=== PATIENT | female | born 1995 ===

== ENCOUNTER 2017-11-26 15:42 | Emergency (ER) | payer SELFPAY ==
[2017-11-26 15:59] VITALS: BP 118/79
--- NOTE | 2017-11-26 16:21 | ER Document Report ---
HPI - HPI Patient complains to provider of: right hand pain Onset: Yesterday Pain Level: 3 Context: 22 yo right handed female stumbled and fell injuring right lateral dorsal hand. Associated Symptoms: None Exacerbated by: Movement Relieved by: Denies - ROS ROS below otherwise negative: Yes Systems Reviewed and Negative: Yes All other systems reviewed and negative Past Medical History - General Information source: Patient - Social History Smoking Status: Unknown if Ever Smoked Lives with: Family Family History: Reviewed & Not Pertinent - Medical History Medical History: Negative Surgical Hx: Negative Vertical Provider Document - CONSTITUTIONAL Agree With Documented VS: Yes Exam Limitations: No Limitations - INFECTION CONTROL TRAVEL OUTSIDE OF THE [place] IN LAST 30 DAYS: No - MUSCULOSKELETAL/EXTREMETIES Musculoskeletal/Extremeties: FROM, Tender - mid right 5th MC, Edema Notes: no rotational deviation - NEURO Level of Consciousness: Awake Motor/Sensory: No Motor Deficit, No Sensory Deficit Course - Re-evaluation Re-evalutation: 11/26/17 fx mid right 5th MC - Vital Signs Vital signs: Temp Pulse Resp BP Pulse Ox 98.4 F 61 16 118/79 100 11/26/17 15:58 11/26/17 15:58 11/26/17 15:58 11/26/17 15:58 11/26/17 15:58 Procedures - Immobilization Right Hand Time completed: 16:40 Pre-Proc Neuro Vasc Exam: Normal Immobilizer type: Ulnar, Sling Performed by: PCT Post-Proc Neuro Vasc Exam: Normal Alignment checked and good: Yes Discharge - Discharge Clinical Impression: Fifth metacarpal fracture right Condition: Good Disposition: HOME, SELF-CARE Instructions: Fractured Fifth Metacarpal ([facility]), Acetaminophen, Ibuprofen ( General) ([facility]), Sling to be Used ([facility]), Splint Precautions ([facility]), Temporary Splint ([facility]) Additional Instructions: Call orthopedics for follow-up appointment Keep the splint on Sling to elevate Tylenol up to 4000 mg a day for pain Motrin 600 mg 3 times a day for pain Return to the emergency room any concerns Prescriptions: Ibuprofen [Motrin 600 mg Tablet] 600 mg PO Q8HP PRN #30 tablet PRN Reason: Referrals: GUANAKITO ZAMORA DO [ACTIVE STAFF] - Follow up tomorrow
--- NOTE | 2017-11-26 16:25 | RADIOLOGY REPORT (SQ) ---
EXAM DESCRIPTION: HAND RIGHT 3 VIEWS COMPLETED DATE/TIME: 11/26/2017 4:16 pm REASON FOR STUDY: injury COMPARISON: None. EXAM PARAMETERS: NUMBER OF VIEWS: Three views. TECHNIQUE: AP, lateral and oblique radiographic images acquired of the right hand. LIMITATIONS: None. FINDINGS: MINERALIZATION: Normal. BONES: There is a transverse fracture through the 5th mid metacarpal. Remainder of the skeletal stru ctures appear intact. JOINTS: No effusions. SOFT TISSUES: No soft tissue swelling. No foreign body. OTHER: No other significant finding. IMPRESSION: Transverse fracture through the mid aspect of the 5th metacarpal. TECHNICAL DOCUMENTATION: JOB ID: [id number] [employer]- All Rights Reserved Reading location - IP/workstation name: [email or web address]
--- NOTE | 2017-11-26 16:26 | RADIOLOGY REPORT (SQ) ---
EXAM DESCRIPTION: WRIST RIGHT 3 VIEWS COMPLETED DATE/TIME: 11/26/2017 4:19 pm REASON FOR STUDY: injury COMPARISON: None. NUMBER OF VIEWS: Three views. TECHNIQUE: AP, lateral, and oblique radiographic images acquired of the right wrist. LIMITATIONS: None. FINDINGS: MINERALIZATION: Normal. BONES: Mid 5th metacarpal fracture is noted. No other significant findings. SOFT TISSUES: No soft tissue swelling. No foreign body. OTHER: No other significant finding. IMPRESSION: There is a fracture through the mid aspect of the 5th metacarpal. TECHNICAL DOCUMENTATION: JOB ID: [id number] [employer]- All Rights Reserved Reading location - IP/workstation name: [email or web address]
== END 2017-11-26 16:50 | disposition home or self-care (01) ==
LOC: ER 15:42
DX: S62.396A Other fracture of fifth metacarpal bone, right hand, initial encounter for closed fracture (principal); W01.0XXA Fall on same level from slipping, tripping and stumbling without subsequent striking against object, initial encounter
CPT/HCPCS: 99283